=== PATIENT | male | born 1990 | race African-American/Black ===

== ENCOUNTER 2022-11-21 11:00 | Emergency (ER) | payer SELFPAY ==
[2022-11-21 11:08] VITALS: BP 122/88; PULSE 56; RESP 14; O2SAT 100
--- NOTE | 2022-11-21 14:05 | ED.DENTAL1 ---
HPI - Dental/Oral General Chief complaint: Dental/Oral Stated complaint: TOOTH PAIN Time Seen by Provider: 11/21/22 14:05 Source: patient Mode of arrival: walk-in History of Present Illness HPI Narrative: This persist emergency department complaining of dental pain. Patient states she's had dental pain for 2 months tooth #18 and 19. He denies any swelling. He states yesterday he had a fever but he did not check his temperature. He states that he have chronic cavities he has not seen a dentist. He is taking Tylenol and Motrin at home for pain. He denies any difficulty swallowing. He states the pain is worsened by air. Related Data Home Medications Medication Instructions Recorded Confirmed No Known Home Medications 11/21/22 11/21/22 Previous Rx's Medication Instructions Recorded clindamycin HCl 300 mg capsule 300 mg PO Q8H 10 days #30 caps 11/21/22 tramadol 50 mg tablet 50 mg PO Q8H PRN pain 5 days #14 11/21/22 tabs Allergies Allergy/AdvReac Type Severity Reaction Status Date / Time No Known Drug Allergies Allergy Verified 11/21/22 11:08 Review of Systems ROS Status of ROS 10 or more systems reviewed and unremarkable except as noted in history and below Exam Narrative Exam Narrative: General: The patient is comfortable, alert and oriented x3, well appearing, non toxic in no apparent distress. Head: Atraumatic and normocephalic. Eyes: Normal conjunctiva ENT: The oropharynx is normal. No pharyngeal erythema, uvular edema, tonsillar exudates, asymmetry or trismus. Uvula is midline. Mouth is normal to inspection with the exception of a pain on percussion of the tooth #18-19 and evidence of dental caries and dentin erosion. There is no evidence of facial asymmetry or abscess formation. Floor of the mouth is soft. No tenderness in the submental or submandibular space. No tongue elevation or deviation. The patient has no evidence of periapical abscess, gingivitis or other acute pathology. Airway is patent. Neck: The neck demonstrates normal range of motion. No meningeals signs are present. No stridor. No masses or lymphandenopathy noted. Respiratory: No acute distress, lungs are clear to auscultation, no wheezing, rhonchi, or rales noted. No stridor or retractions are noted. Cardiovascular: Regular rate and rhythm Skin: The skin exam shows no evidence of rashes Neuro: Alert and oriented x4, normal speech Lymphatic: No cervical lymphadenopathy Constitutional Vital Signs, click to edit/add: Last Vital Signs Temp 99.2 F 11/21/22 14:27 Pulse 77 11/21/22 14:27 Resp 18 11/21/22 14:27 BP 137/84 11/21/22 14:27 Pulse Ox 99 11/21/22 14:27 O2 Del Method Room Air 11/21/22 14:27 Course Vital Signs Vital signs: Vital Signs Pulse Rate 56 L 11/21/22 11:08 Respiratory Rate 14 11/21/22 11:08 Blood Pressure 122/88 11/21/22 11:08 Pulse Oximetry 100 11/21/22 11:08 Oxygen Delivery Method Room Air 11/21/22 11:08 Temperature 99.2 F 11/21/22 14:27 Pulse Rate 77 11/21/22 14:27 Respiratory Rate 18 11/21/22 14:27 Blood Pressure 137/84 11/21/22 14:27 Pulse Oximetry 99 11/21/22 14:27 Oxygen Delivery Method Room Air 11/21/22 14:27 MDM - Dental/Oral MDM Narrative Medical decision making narrative: Patient is given a prescription for clindamycin, and Ultram. oarrs was checked. At this time the patient is without objective evidence of an acute process requiring hospitalization or inpatient management. The patient has remained hemodynamically stable. No additional indication for emergent studies at this time. I answered all questions. Discussed discharge instructions including standard anticipatory guidance and what should prompt a return to the emergency department, including if they get worse are not getting better or develops any new or concerning symptoms. I've given them specific time frame in which to follow-up, and who to follow-up with. The patient demonstrates understanding. Patient is nontoxic and stable for discharge with outpatient follow-up. This note was created with the assistance of a speech recognition program. Although the intention is to generate documents that actually reflects the content of the visit, no guarantees can be provided that every mistake has been identified and corrected by editing. Lab Data Attestation: I reviewed the patient's lab results. Discharge Plan Discharge Chief Complaint: Dental/Oral Clinical Impression: Dental caries Patient Disposition: Home, Self-Care Time of Disposition Decision: 14:14 Condition: Good Mode of Transportation: Private Vehicle Prescriptions / Home Meds: New tramadol 50 mg tablet 50 mg PO Q8H PRN (Reason: pain) 5 Days Qty: 14 0RF clindamycin HCl 300 mg capsule 300 mg PO Q8H 10 Days Qty: 30 0RF No Action No Known Home Medications Instructions: Toothache (ED) Stand Alone Forms: Portal Instructions Referrals: Physician,Non-Staff, MD [Primary Care Provider] - 1 week Discharge Date/Time: 11/21/22 14:30
[2022-11-21] MEDS: TRAMADOL HCL 50 MG TABLET PO (14:22)
[2022-11-21] MEDS: BENZOCAINE 30 ML, lidocaine HCL 15 ML MM (14:22)
[2022-11-21 14:27] VITALS: BP 137/84; PULSE 77; RESP 18; TEMP 37.3; O2SAT 99
== END 2022-11-21 14:30 | disposition home or self-care (01) ==
PROVIDERS: Emergency Provider Emergency Medicine
DX: K02.9 Dental caries, unspecified (principal)
CPT/HCPCS: 99283